=== PATIENT | female | born 1955 | race Caucasian/White ===

== ENCOUNTER → 2018-01-20 | Outpatient (CLI) | payer OTHER ==
[~2018-01-20] MED LIST: ACETAMINOOPHEN-1 TAB PO; ACID CONTROL75 MG PO; ALPRAZOLAM1 MG PO; AMOX1TAB12 PO; CIPRO750 MG PO; CLARITIN10 MG; CLONAZEPAM1 MG PO; Cozaar PO; DOCUSATE SODIU100 MG PO; DULERA 100 MCG/13 GM; FLURAZEPAM HCL15 MG; HYDROCHLOROTHIA25 MG; HYDRODIURIL PO; HYZAAR 50-12.1 UDTAB; LEVAQUIN750 MG PO; MEDROLPACK PO; METHYLPRED4 MG/DOSE- PO; NEURONTIN PO; NEURONTIN800 MG; NORTUSS-EX LIQ118 ML PO; SYNTHROID125 MCG; Synthroid 125MCG TABLET PO; TESSALON PERLE100 M1 PO; THEO-DUR PO; TOPROL XL50 M1; TOPROL XL50 M1 PO; XARELTO20 MG PO; ZITHROMAX TRI-500 MG PO
== END | disposition home or self-care (01) ==
LOC: NUCLEAR 12:57
DX: I87.2 Venous insufficiency (chronic) (peripheral) (principal)

== ENCOUNTER → 2019-02-11 | Emergency (ER) | payer OTHER ==
[~2019-02-11] VITALS: Ht 165.1 cm; Wt 72.6 kg
== END | disposition home or self-care (01) ==
LOC: ER 09:36
DX: L03.116 Cellulitis of left lower limb (principal)

== ENCOUNTER 2019-03-11 06:55 | Emergency (ER) | payer OTHER ==
[~2019-03-11] VITALS: Ht 167.6 cm; Wt 72.6 kg
[2019-03-11] MEDS ORDERED: SYNTHROID112 MCG (07:11)
[2019-03-11] MEDS ORDERED: COZAAR25 MG (07:11)
[2019-03-11] MEDS ORDERED: SPIRIVA RESPIMAT4 GM (07:12)
[2019-03-11] MEDS ORDERED: BREO ELLIPTA 21 EACH (07:12)
[2019-03-11] MEDS ORDERED: PROTONIX40 M1 (07:13)
[2019-03-11] MEDS ORDERED: CARDIZEM30 MG (07:13)
[2019-03-11] MEDS ORDERED: BUSPIRONE HCL5 MG (07:13)
== END 2019-03-11 11:23 | disposition home or self-care (01) ==
LOC: ER 06:55
DX: J44.9 Chronic obstructive pulmonary disease, unspecified (principal); J40 Bronchitis, not specified as acute or chronic

== ENCOUNTER 2019-03-18 07:20 | Inpatient (IN) | payer OTHER ==
[~2019-03-18] VITALS: Ht 167.6 cm; Wt 72.6 kg
[~2019-03-18 07:20] MED LIST changes: +BREO ELLIPTA 21 EACH; +BUSPIRONE HCL5 MG; +CARDIZEM30 MG; +COZAAR25 MG; +PROTONIX40 M1; +SPIRIVA RESPIMAT4 GM; +SYNTHROID112 MCG
== END 2019-03-23 14:15 | disposition home or self-care (01) | DRG 192 ==
LOC: ER 07:20 → MEDJ 03-19 12:37 → SEC-K 03-19 12:37 → MEDJ 03-19 13:26
PROVIDERS: ADMIT Specialist
PROC: BW24ZZZ Computerized Tomography (CT Scan) of Chest and Abdomen (ICD-10-PCS; principal; 2019-03-18)
PROC: 4A033R1 Measurement of Arterial Saturation, Peripheral, Percutaneous Approach (ICD-10-PCS; 2019-03-18)
PROC: 3E0F7GC Introduction of Other Therapeutic Substance into Respiratory Tract, Via Natural or Artificial Opening (ICD-10-PCS; 2019-03-18)
DX: J44.1 Chronic obstructive pulmonary disease with (acute) exacerbation (principal); J20.8 Acute bronchitis due to other specified organisms; I10 Essential (primary) hypertension; E03.8 Other specified hypothyroidism; M79.7 Fibromyalgia; J45.998 Other asthma; G47.33 Obstructive sleep apnea (adult) (pediatric); Z86.711 Personal history of pulmonary embolism; Z79.01 Long term (current) use of anticoagulants

== ENCOUNTER → 2019-09-13 | Emergency (ER) | payer OTHER ==
[~2019-09-13] VITALS: Ht 165.1 cm; Wt 72.6 kg
[~2019-09-13] MED LIST changes: +FLONASE16 GM NS; +PROAIR HFA8.5 GM IH; +RESTORIL30 M1 PO; +XARELTO10 MG PO; +[UNRECOGNIZED DRUG - OTHER]
== END | disposition home or self-care (01) ==
LOC: ER 09:07
DX: J44.9 Chronic obstructive pulmonary disease, unspecified (principal)

== ENCOUNTER 2019-09-15 09:48 | Emergency (ER) | payer OTHER ==
[~2019-09-15] VITALS: Ht 165.1 cm; Wt 72.6 kg
== END 2019-09-15 15:42 | disposition home or self-care (01) ==
LOC: ER 09:48
DX: J44.1 Chronic obstructive pulmonary disease with (acute) exacerbation (principal)

== ENCOUNTER 2021-03-21 16:57 | Emergency (ER) | payer OTHER ==
[~2021-03-21] VITALS: Ht 167.6 cm; Wt 80.3 kg
[2021-03-21] MEDS ORDERED: BUSPIRONE HCL5 MG PO (17:15)
[2021-03-21] MEDS ORDERED: ESTAZOLAM2 MG PO (17:15)
== END 2021-03-21 21:57 | disposition home or self-care (01) ==
LOC: ER 16:57
DX: G44.209 Tension-type headache, unspecified, not intractable (principal)

== ENCOUNTER 2021-07-21 07:12 | Outpatient (CLI) | payer OTHER ==
[~2021-07-21 07:12] MED LIST changes: +BUSPIRONE HCL5 MG PO; +ESTAZOLAM2 MG PO
== END 2021-07-21 07:13 | disposition home or self-care (01) ==
LOC: NUCLEAR 07:12
PROVIDERS: ATTEND Internal Medicine Cardiovascular Disease
DX: R07.89 Other chest pain (principal); I25.9 Chronic ischemic heart disease, unspecified; I50.1 Left ventricular failure, unspecified
CPT/HCPCS: 78452; 93017; A9500

== ENCOUNTER 2022-02-07 17:48 | Emergency (ER) | payer OTHER ==
[~2022-02-07] VITALS: Ht 165.1 cm; Wt 86.2 kg
== END 2022-02-07 22:41 | disposition home or self-care (01) ==
LOC: ER 17:48
DX: J44.1 Chronic obstructive pulmonary disease with (acute) exacerbation (principal); J45.998 Other asthma; R06.02 Shortness of breath; R53.83 Other fatigue; I10 Essential (primary) hypertension; E05.90 Thyrotoxicosis, unspecified without thyrotoxic crisis or storm; Z88.1 Allergy status to other antibiotic agents; Z20.822 Contact with and (suspected) exposure to COVID-19

== ENCOUNTER 2022-04-20 20:27 | Emergency (ER) | payer OTHER ==
[~2022-04-20] VITALS: Ht 167.6 cm; Wt 86.2 kg
== END 2022-04-21 02:47 ==
LOC: ER 20:27
DX: J44.1 Chronic obstructive pulmonary disease with (acute) exacerbation (principal); J45.901 Unspecified asthma with (acute) exacerbation; I49.9 Cardiac arrhythmia, unspecified; I10 Essential (primary) hypertension; Z20.822 Contact with and (suspected) exposure to COVID-19; Z88.1 Allergy status to other antibiotic agents

== ENCOUNTER 2022-04-27 08:18 | Outpatient (CLI) | payer OTHER | END 2022-04-27 08:19 | disposition home or self-care (01) | LOC: NUCLEAR 08:18 | PROVIDERS: ATTEND Specialist | DX: I73.9 Peripheral vascular disease, unspecified (principal); Z88.1 Allergy status to other antibiotic agents ==

== ENCOUNTER 2022-04-28 07:20 | Outpatient (CLI) | payer OTHER | END 2022-04-28 07:25 | disposition home or self-care (01) | LOC: NUCLEAR 07:20 | PROVIDERS: ATTEND Specialist | DX: I87.2 Venous insufficiency (chronic) (peripheral) (principal); Z88.1 Allergy status to other antibiotic agents ==

== ENCOUNTER 2022-05-10 14:29 | Emergency (ER) | payer OTHER ==
[~2022-05-10] VITALS: Ht 165.1 cm; Wt 86.2 kg
[2022-05-10] MEDS ORDERED: FLUTICASONE-SA1 EAC5 (14:59)
[2022-05-10] MEDS ORDERED: HYDROCHLOROTHIA25 MG PO (15:01)
== END 2022-05-10 19:40 | disposition home or self-care (01) ==
LOC: ER 14:29
DX: J44.1 Chronic obstructive pulmonary disease with (acute) exacerbation (principal); J45.901 Unspecified asthma with (acute) exacerbation; Z88.1 Allergy status to other antibiotic agents

== ENCOUNTER 2022-09-02 20:20 | Emergency (ER) | payer OTHER ==
[~2022-09-02] VITALS: Ht 165.1 cm; Wt 87.5 kg
[~2022-09-02 20:20] MED LIST changes: +FLUTICASONE-SA1 EAC5; +HYDROCHLOROTHIA25 MG PO
== END 2022-09-02 22:40 | disposition home or self-care (01) ==
LOC: ER 20:20
DX: J44.1 Chronic obstructive pulmonary disease with (acute) exacerbation (principal); Z87.09 Personal history of other diseases of the respiratory system; Z88.8 Allergy status to other drugs, medicaments and biological substances

== ENCOUNTER 2023-04-27 12:14 | Outpatient (CLI) | payer OTHER | END 2023-04-27 12:17 | disposition home or self-care (01) | LOC: NUCLEAR 12:14 | PROVIDERS: ATTEND Internal Medicine | DX: I27.24 Chronic thromboembolic pulmonary hypertension (principal); I26.99 Other pulmonary embolism without acute cor pulmonale | CPT/HCPCS: 78582; A9567 ==

== ENCOUNTER 2023-05-10 10:57 | Outpatient (CLI) | payer OTHER | END 2023-05-10 10:58 | disposition home or self-care (01) | LOC: NUCLEAR 10:57 | PROVIDERS: ATTEND Internal Medicine | DX: I27.24 Chronic thromboembolic pulmonary hypertension (principal); I26.99 Other pulmonary embolism without acute cor pulmonale | CPT/HCPCS: 78582; A9540 ==

== ENCOUNTER 2023-10-23 10:18 | Emergency (ER) | payer OTHER ==
[~2023-10-23] VITALS: Ht 167.6 cm; Wt 86.2 kg
[2023-10-23 12:05] LABS: HEMOGLOBIN 12.6 g/dL (12.0-15.00); MEAN CELL VOLUME 85.8 fL (80.00-100.00); MEAN CORPUSCULAR HEMOGLOBIN 29.2 pg (27.00-32.0); PLATELET COUNT 321 K/uL (150-450); RED BLOOD COUNT 4.31 M/uL (4.00-6.00); RED CELL DISTRIBUTION WIDTH 14.5 % (11.5-14.5)
[2023-10-23 12:59] LABS: BILIRUBIN TOTAL 0.93 mg/dL (0.3-1.2); BILIRUBIN,CONJUGATED 0.23 mg/dL (0.0-0.2); BILIRUBIN,UNCONJUGATED 0.7 mg/dL (0.0-0.6); CALCIUM 9.1 mg/dL (8.5-10.1); CREATININE SERUM 0.7 mg/dL (0.55-1.02); GFR 82.97; POTASSIUM 3.7 mEq/L (3.5-5.1)
[2023-10-23 13:52] LABS: URINE APPEARANCE Cloudy; URINE BILIRRUBIN Negative (NEGATIVE); URINE BLOOD Negative; URINE COLOR Yellow; URINE GLUCOSE Negative (NEGATIVE); URINE LEUKOCYTE Negative; URINE NITRATE Negative; URINE PROTEIN Negative (NEGATIVE); URINE UROBILINOGEN 0.2 E.U./dl
[2023-10-23 14:03] LABS: URINE BACTERIA 32.7 uL (0.0-1933); URINE EPITHELIAL CELLS 3.3 uL (0.0-38.8); URINE RBC 35.9 uL (0.0-20.8)
[2023-10-23 14:07] LABS: URINE WBC 1.5 uL (0.0-23.2)
== END 2023-10-23 16:18 | disposition home or self-care (01) ==
LOC: ER 10:19
PROVIDERS: General Practice
DX: K52.89 Other specified noninfective gastroenteritis and colitis (principal); I10 Essential (primary) hypertension; Z88.8 Allergy status to other drugs, medicaments and biological substances; Z87.09 Personal history of other diseases of the respiratory system; Z20.822 Contact with and (suspected) exposure to COVID-19
CPT/HCPCS: 36415; 74176; 93005; 96365; 96372; 99284; J2405; J3490; J7120

== ENCOUNTER 2023-10-27 18:54 | Inpatient (IN) | payer OTHER ==
[~2023-10-27] VITALS: Ht 167.6 cm; Wt 83.9 kg
[2023-10-27] MEDS ORDERED: FAMOTIDINE/PF 20 MG in 0.9 % SODIUM CHLORIDE 8 ML IV PUSH STA (19:27)
[2023-10-27] MEDS ORDERED: 0.9 % SODIUM CHLORIDE 1,000 ML IV SCH ×2 (19:30→22:00)
[2023-10-27] MEDS ORDERED: ONDANSETRON HCL 2 MG/ML VIAL IV ONE (19:30)
[2023-10-27] MEDS ORDERED: DIPHENOXYLATE HCL/ATROPINE 1 UDTAB TABLET PO ONE (19:30)
[2023-10-27 20:16] LABS: HEMATOCRIT 34.8 % (36.0-45.00); MEAN CELL VOLUME 86.4 fL (80.00-100.00); MEAN CORPUSCULAR HEMOGLOBIN 29.7 pg (27.00-32.0); MEAN CORPUSCULAR HGB CONC 34.3 g/dl (32.0-36.0); PLATELET COUNT 356 K/uL (150-450); RED BLOOD COUNT 4.03 M/uL (4.00-6.00); RED CELL DISTRIBUTION WIDTH 14.5 % (11.5-14.5)
[2023-10-27 20:59] LABS: ALBUMIN 3.7 gm/dL (3.4-5.0); BILIRUBIN TOTAL 0.67 mg/dL (0.3-1.2); BILIRUBIN,CONJUGATED 0.17 mg/dL (0.0-0.2); BILIRUBIN,UNCONJUGATED 0.5 mg/dL (0.0-0.6); CALCIUM 8.8 mg/dL (8.5-10.1); CREATININE SERUM 0.61 mg/dL (0.55-1.02); GFR 97.25; GLOBULINA 3.2 G/DL (2.4-3.5); TOTAL PROTEIN 6.9 gm/dL (6.4-8.2)
[2023-10-27 21:05] LABS: POTASSIUM 2.78 mEq/L (3.5-5.1)
[2023-10-27] MEDS ORDERED: CEFTRIAXONE SODIUM 2,000 MG in 0.9 % SODIUM CHLORIDE 100 ML IV SCH (21:58)
[2023-10-27] MEDS ORDERED: METRONIDAZOLE/SODIUM CHLORIDE 100 ML IV SCH (21:58)
[2023-10-27] MEDS ORDERED: ONDANSETRON HCL 4 MG in 0.9 % SODIUM CHLORIDE 50 ML IV PRN (22:00)
[2023-10-27] MEDS ORDERED: ACETAMINOPHEN 500 MG GEL..CAP PO PRN (22:00)
[2023-10-27 22:12] LABS: URINE APPEARANCE Clear; URINE BILIRRUBIN Negative (NEGATIVE); URINE BLOOD Negative; URINE COLOR Yellow; URINE GLUCOSE Negative (NEGATIVE); URINE LEUKOCYTE Negative; URINE NITRATE Negative; URINE PROTEIN Negative (NEGATIVE)
[2023-10-27 22:15] LABS: URINE BACTERIA 45.3 uL (0.0-1933); URINE EPITHELIAL CELLS 2.1 uL (0.0-38.8); URINE RBC 129.9 uL (0.0-20.8)
[2023-10-27 22:16] LABS: URINE WBC 1.6 uL (0.0-23.2)
[2023-10-27] MEDS ORDERED: POTASSIUM CHLORIDE 20MEQ/100ML H2O PB IV ONE (23:45)
[2023-10-27] MEDS ORDERED: PROMETHAZINE HCL 25 MG/ML AMPUL IM ONE (23:45)
[2023-10-27] MEDS ORDERED: MEPERIDINE HCL/PF 25 MG/ML VIAL IM ONE (23:45)
[2023-10-28 00:45] LABS: INR 1.25; PARTIAL THROMBOPLASTIN TIME 34.5 SECONDS (22.0-34.0); PROTHROMBIN TIME 12.9 SECONDS (9.0-11.5)
[2023-10-28] MEDS ORDERED: FAMOTIDINE/PF 20 MG in 0.9 % SODIUM CHLORIDE 8 ML IV PUSH SCH (05:00)
[2023-10-28] MEDS ORDERED: LEVOTHYROXINE SODIUM 112 MCG TABLET PO SCH (06:00)
[2023-10-28] MEDS ORDERED: LOSARTAN POTASSIUM 25 MG TABLET PO SCH (09:00)
[2023-10-28] MEDS ORDERED: LOSARTAN/HYDROCHLOROTHIAZIDE 1 TAB TABLET PO SCH (09:00)
[2023-10-28] MEDS ORDERED: DILTIAZEM HCL 120 MG CAP.SR.24H PO SCH (09:00)
[2023-10-28] MEDS ORDERED: ENOXAPARIN SODIUM 40 MG/0.4 ML SYRINGE SUBCUTANEO SCH (09:00)
[2023-10-28] MEDS ORDERED: LACTOBACILLUS ACIDOPHILUS 1 CAP CAP PO SCH ×2 (17:00)
[2023-10-28] MEDS ORDERED: GABAPENTIN 800 MG TABLET PO SCH (17:00)
[2023-10-29] MEDS ORDERED: RIVAROXABAN 20 MG TABLET PO SCH (09:00)
[2023-10-29 09:20] LABS: HEMATOCRIT 31.2 % (36.0-45.00); HEMOGLOBIN 11.1 g/dL (12.0-15.00); MEAN CELL VOLUME 85.1 fL (80.00-100.00); MEAN CORPUSCULAR HEMOGLOBIN 30.1 pg (27.00-32.0); MEAN CORPUSCULAR HGB CONC 35.4 g/dl (32.0-36.0); PLATELET COUNT 296 K/uL (150-450); RED BLOOD COUNT 3.67 M/uL (4.00-6.00); RED CELL DISTRIBUTION WIDTH 14.6 % (11.5-14.5)
[2023-10-29 09:32] LABS: ALBUMIN 3.1 gm/dL (3.4-5.0); BILIRUBIN TOTAL 0.66 mg/dL (0.3-1.2); CALCIUM 8.5 mg/dL (8.5-10.1); CREATININE SERUM 0.6 mg/dL (0.55-1.02); GFR 99.12; GLOBULINA 2.7 G/DL (2.4-3.5); MAGNESIUM 2.1 mg/dL (1.8-2.4); PHOSPHOROUS 3.5 mg/dL (2.5-4.9); POTASSIUM 3.49 mEq/L (3.5-5.1); TOTAL PROTEIN 5.8 gm/dL (6.4-8.2); TSH 1.64 uIU/mL (0.358-3.74)
[2023-10-29 09:34] LABS: T4 FREE 1.49 NG/ML (0.76-1.46)
[2023-10-29] MEDS ORDERED: TRAMADOL HCL 50 MG TABLET PO PRN (13:15)
[2023-10-29] MEDS ORDERED: POTASSIUM CHLORIDE 20MEQ/100ML H2O PB IV ONE (13:30)
[2023-10-30] MEDS ORDERED: ZOLPIDEM TARTRATE 10 MG TABLET PO SCH (21:00)
[2023-10-31 07:08] LABS: BILIRUBIN TOTAL 0.5 mg/dL (0.3-1.2); CALCIUM 8.3 mg/dL (8.5-10.1); CREATININE SERUM 0.57 mg/dL (0.55-1.02); GFR 105.17; GLOBULINA 2.4 G/DL (2.4-3.5); MAGNESIUM 2.2 mg/dL (1.8-2.4); POTASSIUM 4.03 mEq/L (3.5-5.1); TOTAL PROTEIN 5.4 gm/dL (6.4-8.2)
[2023-11-01] MEDS ORDERED: FAMOTIDINE/PF 20 MG/2 ML VIAL ONE (23:59)
== END 2023-10-31 15:27 | disposition home or self-care (01) | DRG 640 ==
LOC: ER 18:54 → MEDI 22:01
PROVIDERS: General Practice; Internal Medicine Nephrology; ADMIT Internal Medicine; ATTEND Internal Medicine
DX: E86.0 Dehydration (principal); I26.99 Other pulmonary embolism without acute cor pulmonale; E87.1 Hypo-osmolality and hyponatremia; J44.9 Chronic obstructive pulmonary disease, unspecified; E03.9 Hypothyroidism, unspecified

== ENCOUNTER 2024-04-04 16:49 | Emergency (ER) | payer OTHER ==
[~2024-04-04] VITALS: Ht 167.6 cm; Wt 85.3 kg
[2024-04-04] MEDS ORDERED: ADEMPAS2.5 MG (17:06)
[2024-04-04 19:18] LABS: HEMATOCRIT 32.9 % (36.0-45.00); HEMOGLOBIN 11.2 g/dL (12.0-15.00); MEAN CELL VOLUME 86.3 fL (80.00-100.00); MEAN CORPUSCULAR HEMOGLOBIN 29.4 pg (27.00-32.0); MEAN CORPUSCULAR HGB CONC 34.1 g/dl (32.0-36.0); PLATELET COUNT 264 K/uL (150-450); RED BLOOD COUNT 3.81 M/uL (4.00-6.00); RED CELL DISTRIBUTION WIDTH 15.5 % (11.5-14.5)
[2024-04-04 19:29] LABS: INR 1.07; PARTIAL THROMBOPLASTIN TIME 29.1 SECONDS (22.0-34.0); PROTHROMBIN TIME 11.2 SECONDS (9.0-11.5)
[2024-04-04 19:34] LABS: BILIRUBIN TOTAL 0.68 mg/dL (0.3-1.2); CALCIUM 9.9 mg/dL (8.5-10.1); CREATININE SERUM 0.94 mg/dL (0.55-1.02); GFR 58.87; GLOBULINA 3.4 G/DL (2.4-3.5); POTASSIUM 3.44 mEq/L (3.5-5.1); TOTAL PROTEIN 7.4 gm/dL (6.4-8.2)
== END 2024-04-04 20:33 | disposition home or self-care (01) ==
LOC: ER 16:49
DX: R60.0 Localized edema (principal); Z88.8 Allergy status to other drugs, medicaments and biological substances

== ENCOUNTER 2024-04-28 09:39 | Emergency (ER) | payer OTHER ==
[~2024-04-28] VITALS: Ht 170.2 cm; Wt 84.8 kg
[~2024-04-28 09:39] MED LIST changes: +ADEMPAS2.5 MG
[2024-04-28] MEDS ORDERED: IBUprofen 400 MG TABLET PO ONE (11:00)
[2024-04-28] MEDS ORDERED: IBUprofen 20 MG/ML BLIST.PACK (5ML) PO ONE (11:19)
== END 2024-04-28 14:26 | disposition home or self-care (01) ==
LOC: ER 09:41
DX: S00.93XA Contusion of unspecified part of head, initial encounter (principal); S90.31XA Contusion of right foot, initial encounter; S40.011A Contusion of right shoulder, initial encounter; W06.XXXA Fall from bed, initial encounter; Y93.84 Activity, sleeping; Y92.013 Bedroom of single-family (private) house as the place of occurrence of the external cause; Y99.9 Unspecified external cause status; I10 Essential (primary) hypertension; E03.9 Hypothyroidism, unspecified

== ENCOUNTER → 2024-05-17 09:55 | Outpatient (CLI) | payer OTHER | END | disposition home or self-care (01) | LOC: NUCLEAR 09:55 | PROVIDERS: ATTEND Internal Medicine | DX: I77.2 Rupture of artery (principal); I87.2 Venous insufficiency (chronic) (peripheral) ==

== ENCOUNTER 2024-08-21 14:31 | Emergency (ER) | payer OTHER ==
[~2024-08-21] VITALS: Ht 167.6 cm; Wt 83.9 kg
[2024-08-21] MEDS ORDERED: 0.9 % SODIUM CHLORIDE 1,000 ML IV SCH (16:30)
[2024-08-21 16:57] LABS: HEMATOCRIT 34.1 % (36.0-45.00); HEMOGLOBIN 11.5 g/dL (12.0-15.00); MEAN CELL VOLUME 87.3 fL (80.00-100.00); MEAN CORPUSCULAR HEMOGLOBIN 29.5 pg (27.00-32.0); MEAN CORPUSCULAR HGB CONC 33.8 g/dl (32.0-36.0); PLATELET COUNT 280 K/uL (150-450); RED CELL DISTRIBUTION WIDTH 15.4 % (11.5-14.5)
[2024-08-21 17:13] LABS: PARTIAL THROMBOPLASTIN TIME 25.5 SECONDS (22.0-34.0); PROTHROMBIN TIME 10.9 SECONDS (9.0-11.5)
[2024-08-21 17:18] LABS: CALCIUM 9.3 mg/dL (8.5-10.1); CREATININE SERUM 1.05 mg/dL (0.55-1.02); GFR 51.81; POTASSIUM 4.41 mEq/L (3.5-5.1)
[2024-08-21 17:46] LABS: PH,URINE 5.5 (5.0-8.0); URINE APPEARANCE Clear; URINE BILIRRUBIN Negative (NEGATIVE); URINE BLOOD Negative; URINE COLOR Yellow; URINE GLUCOSE Negative (NEGATIVE); URINE KETONE Negative (NEGATIVE); URINE LEUKOCYTE Negative; URINE NITRATE Negative; URINE PROTEIN Negative (NEGATIVE); URINE UROBILINOGEN 0.2 E.U./dl
[2024-08-21 17:51] LABS: URINE BACTERIA 2.5 uL (0.0-1933); URINE CAST 0.15 uL (0.0-1.40); URINE EPITHELIAL CELLS 0.9 uL (0.0-38.8); URINE RBC 1.5 uL (0.0-20.8); URINE WBC 0.1 uL (0.0-23.2)
[2024-08-21 19:51] LABS: ABG PH 7.424 (7.35-7.45); ABG PO2 106.3 mmHg (80-100); ABG pCO2 40.8 mmHg (35-45); BASE EXCESS 1.6 mmol/l; BICARBONATE 26.1 mmol/l (23-25); SaO2 98.2 %; Tco2 27.4 mmol/l
[2024-08-21 19:52] LABS: allen test SATISFACTORY; o2 21 %; puncture site RADIAL LEFT
== END 2024-08-21 19:36 | disposition home or self-care (01) ==
LOC: ER 14:33
PROVIDERS: Emergency Medicine
DX: R53.81 Other malaise (principal); R06.02 Shortness of breath; I10 Essential (primary) hypertension
CPT/HCPCS: 36415; 71250; 82803; 96365; 96366; 99284; J7030

== ENCOUNTER 2024-09-05 10:51 | Emergency (ER) | payer OTHER ==
[~2024-09-05] VITALS: Ht 167.6 cm; Wt 85.3 kg
[2024-09-05 12:04] VITALS: BP 110/72; O2SAT 94
[2024-09-05] MEDS ORDERED: METHYLPREDNISOLONE SOD SUCC 125 MG VIAL IV STA (12:32)
[2024-09-05] MEDS ORDERED: IPRATROPIUM BROMIDE 0.5 MG/2.5 ML AMPUL.NEB IH STA (12:32)
[2024-09-05] MEDS ORDERED: BUDESONIDE 0.5 MG/2 ML AMPUL.NEB IH STA (12:32)
[2024-09-05] MEDS ORDERED: LEVALBUTEROL HCL 1.25 MG/3 ML SOLUTION IH STA (12:32)
[2024-09-05] MEDS ORDERED: GUAIFENESIN/DEXTROMETHORPHAN 5ML BLIST.PACK PO STA (12:37)
[2024-09-05] MEDS ORDERED: MAGNESIUM SULFATE IN WATER 50 ML IV ONE (12:45)
== END 2024-09-05 15:20 | disposition home or self-care (01) ==
LOC: ER 10:53
DX: R06.02 Shortness of breath (principal); J44.1 Chronic obstructive pulmonary disease with (acute) exacerbation; J45.909 Unspecified asthma, uncomplicated; I10 Essential (primary) hypertension; E03.8 Other specified hypothyroidism

== ENCOUNTER 2024-09-14 08:30 | Outpatient (CLI) | payer OTHER | END 2024-09-14 08:31 | disposition home or self-care (01) | LOC: NUCLEAR 08:30 | PROVIDERS: ATTEND Internal Medicine Pulmonary Disease | DX: I26.99 Other pulmonary embolism without acute cor pulmonale (principal) | CPT/HCPCS: 78582; A9540; A9567 ==

== ENCOUNTER 2024-09-17 07:59 | Outpatient (CLI) | payer OTHER | END 2024-09-17 08:00 | disposition home or self-care (01) | LOC: NUCLEAR 07:59 | PROVIDERS: ATTEND Internal Medicine Pulmonary Disease | DX: I26.99 Other pulmonary embolism without acute cor pulmonale (principal) | CPT/HCPCS: 78582; A9540; A9567 ==

== ENCOUNTER 2025-01-12 14:21 | Emergency (ER) | payer OTHER ==
[~2025-01-12] VITALS: Ht 167.6 cm; Wt 81.6 kg
[2025-01-12] MEDS ORDERED: COZAAR50 MG PO (15:37)
[2025-01-12] MEDS ORDERED: TRAMADOL HCL 50 MG TABLET PO ONE (16:15)
[2025-01-12 16:54] LABS: HEMATOCRIT 40.8 % (36.0-45.00); HEMOGLOBIN 13.6 g/dL (12.0-15.00); MEAN CELL VOLUME 88.3 fL (80.00-100.00); MEAN CORPUSCULAR HEMOGLOBIN 29.5 pg (27.00-32.0); MEAN CORPUSCULAR HGB CONC 33.4 g/dl (32.0-36.0); PLATELET COUNT 295 K/uL (150-450); RED BLOOD COUNT 4.61 M/uL (4.00-6.00); RED CELL DISTRIBUTION WIDTH 14.7 % (11.5-14.5)
[2025-01-12 17:17] LABS: BILIRUBIN TOTAL 0.77 mg/dL (0.3-1.2); CALCIUM 9.7 mg/dL (8.5-10.1); CREATININE SERUM 0.85 mg/dL (0.55-1.02); GFR 65.93; GLOBULINA 3.8 G/DL (2.4-3.5); TOTAL PROTEIN 7.8 gm/dL (6.4-8.2)
[2025-01-12 17:24] LABS: INR 1.06; PARTIAL THROMBOPLASTIN TIME 28.7 SECONDS (22.0-34.0); PROTHROMBIN TIME 11.5 SECONDS (9.0-11.5)
[2025-01-12] MEDS ORDERED: BUTALB/ACETAMINOPHEN/CAFFEINE 1 TAB TABLET PO ONE ×2 (18:00→18:06)
[2025-01-12] MEDS ORDERED: DIPHENHYDRAMINE HCL 50 MG/ML VIAL 1ML IV ONE (18:00)
[2025-01-12] MEDS ORDERED: 0.9 % SODIUM CHLORIDE 1,000 ML IV ONE (18:00)
[2025-01-12 18:05] LABS: POTASSIUM 2.62 mEq/L (3.5-5.1)
[2025-01-12] MEDS ORDERED: DIPHENHYDRAMINE HCL 50 MG/ML VIAL 1ML ONE (18:05)
[2025-01-12] MEDS ORDERED: POTASSIUM BICARBONATE/CIT AC 25 MEQ TABLET.EFF PO ONE (18:15)
[2025-01-12 18:28] LABS: COVID-19 AG NEGATIVE (NEGATIVE)
[2025-01-12 18:30] LABS: INFLUENZA A AG NEGATIVE (NEGATIVE)
== END 2025-01-12 19:40 | disposition home or self-care (01) ==
LOC: ER 14:21
PROVIDERS: General Practice
DX: R51.9 Headache, unspecified (principal); H53.8 Other visual disturbances; R20.0 Anesthesia of skin; J44.9 Chronic obstructive pulmonary disease, unspecified; I10 Essential (primary) hypertension; Z86.711 Personal history of pulmonary embolism; Z20.822 Contact with and (suspected) exposure to COVID-19
CPT/HCPCS: 70450; 71045; 93005; 96365; 99283; J1200; J7030

== ENCOUNTER 2025-02-28 09:15 | Inpatient (IN) | payer OTHER ==
[~2025-02-28] VITALS: Ht 167.6 cm; Wt 81.6 kg
[~2025-02-28 09:15] MED LIST changes: -CARDIZEM30 MG; +CARDIZEM30 MG PO; +COZAAR50 MG PO
[2025-02-28 11:21] LABS: PH,URINE 6.5 (5.0-8.0); URINE APPEARANCE Clear; URINE BILIRRUBIN Small (NEGATIVE); URINE BLOOD Negative; URINE COLOR Dark Yellow; URINE GLUCOSE Negative (NEGATIVE); URINE KETONE 15 (NEGATIVE); URINE LEUKOCYTE Small; URINE NITRATE Negative; URINE PROTEIN 30 (NEGATIVE)
[2025-02-28 11:22] LABS: BASO % 0.8 % (0.1-1.2); EOS # 0.07 (0.04-0.54); EOS % 1.1 % (0.7-7.0); HEMATOCRIT 36.2 % (34.1-44.9); HEMOGLOBIN 11.9 g/dL (11.2-15.7); LYMPH # 1.39 (1.18-3.74); LYMPH % 21.2 % (19.3-53.1); MONO # 0.48 (0.24-0.82); MONO % 7.3 % (4.7-12.5); NEUT # 4.53 (1.56-6.13); NEUT % 69.1 % (34.0-71.1); PLATELET COUNT 256 K/uL (163-369); RED CELL DISTRIBUTION WIDTH 14.9 % (11.6-14.4)
[2025-02-28 11:26] LABS: URINE BACTERIA 206.8 uL (0.0-1933); URINE EPITHELIAL CELLS 27.8 uL (0.0-38.8); URINE RBC 56.5 uL (0.0-20.8); URINE WBC 6.4 uL (0.0-23.2)
[2025-02-28 11:46] LABS: URINE CAST 1.03 uL (0.0-1.40)
[2025-02-28 11:47] LABS: URINE CRYSTALS FEW /HPF; URINE MUCUS MODERATE
[2025-02-28 11:48] LABS: INR 1.16; PARTIAL THROMBOPLASTIN TIME 27.2 SECONDS (22.0-34.0); PROTHROMBIN TIME 12.5 SECONDS (9.0-11.5)
[2025-02-28 12:39] VITALS: BP 105/65
[2025-02-28 13:05] LABS: CALCIUM 9.2 mg/dL (8.5-10.1); CREATININE SERUM 0.78 mg/dL (0.55-1.02); GFR 72.8; POTASSIUM 3.88 mEq/L (3.5-5.1)
[2025-02-28] MEDS ORDERED: ATORVASTATIN CA10 MG PO (14:17)
[2025-02-28] MEDS ORDERED: XARELTO20 MG PO (14:18)
[2025-02-28] MEDS ORDERED: CLONAZEPAM2 M1 PO (14:18)
[2025-03-01 18:28] LABS: RH NEGATIVE
[2025-03-04] MEDS ORDERED: VANCOMYCIN HCL 1,000 MG VIAL IV SCH ×2 (06:00→21:00)
[2025-03-04] MEDS ORDERED: VANCOMYCIN HCL 1,000 MG VIAL ONE (08:59)
[2025-03-04] MEDS ORDERED: TRANEXAMIC ACID 100MG/1ML (1000MG) AMPUL IV ONE (08:59)
[2025-03-04] MEDS ORDERED: METHYLPREDNISOLONE ACETATE 80 MG/ML VIAL ONE (12:13)
[2025-03-04] MEDS ORDERED: KETOROLAC TROMETHAMINE 60 MG VIAL IM ONE (12:13)
[2025-03-04] MEDS ORDERED: ENALAPRILAT DIHYDRATE 1.25 MG/ML VIAL IV ONE (12:49)
[2025-03-04] MEDS ORDERED: hydrALAZINE HCL 20 MG VIAL ONE (13:41)
[2025-03-04] MEDS ORDERED: SUGAMMADEX SODIUM 200 MG/2 ML VIAL IV ONE (14:10)
[2025-03-04] MEDS ORDERED: SODIUM CHLORIDE 0.45 % 1,000 ML IV SCH (14:45)
[2025-03-04] MEDS ORDERED: MORPHINE SULFATE 4 MG/ML CARTRIDGE IV PRN (14:45)
[2025-03-04] MEDS ORDERED: MORPHINE SULFATE 2 MG/ML CARTRIDGE IV NR (14:45)
[2025-03-04] MEDS ORDERED: ONDANSETRON HCL 2 MG/ML VIAL IV PRN (14:45)
[2025-03-04] MEDS ORDERED: MORPHINE SULFATE 4 MG/ML VIAL IV ONE ×2 (14:50→15:30)
[2025-03-04] MEDS ORDERED: ONDANSETRON HCL 2 MG/ML VIAL ONE (15:57)
[2025-03-04] MEDS ORDERED: DILTIAZEM HCL 30 MG TABLET PO SCH (17:00)
[2025-03-04 21:10] VITALS: BP 113/65
[2025-03-05 01:55] VITALS: BP 120/68
[2025-03-05] MEDS ORDERED: ACETAMINOPHEN WITH CODEINE 1 UDTAB TABLET PO PRN ×3 (02:00→18:08)
[2025-03-05 02:03] LABS: BASO % 0.2 % (0.1-1.2); HEMATOCRIT 30.6 % (34.1-44.9); LYMPH # 0.46 (1.18-3.74); LYMPH % 4.5 % (19.3-53.1); MEAN CORPUSCULAR HEMOGLOBIN 29.5 pg (25.6-32.2); MONO % 8.9 % (4.7-12.5); PLATELET COUNT 230 K/uL (163-369); RED BLOOD COUNT 3.53 M/uL (3.93-5.22); RED CELL DISTRIBUTION WIDTH 14.8 % (11.6-14.4)
[2025-03-05 02:06] LABS: HEMOGLOBIN 10.4 g/dL (11.2-15.7)
[2025-03-05 08:00] VITALS: BP 125/76; O2SAT 98
[2025-03-05] MEDS ORDERED: RIVAROXABAN 10 MG TAB PO SCH (09:00)
[2025-03-05] MEDS ORDERED: ATORVASTATIN CALCIUM 20 MG TABLET PO SCH (09:00)
[2025-03-05] MEDS ORDERED: PANTOPRAZOLE SODIUM 40 MG TABLET.DR PO SCH (09:00)
[2025-03-05] MEDS ORDERED: IRON FUM,PS/FOLIC/BCOMP,C NO.9 1 CAP CAPSULE PO SCH (09:00)
[2025-03-05] MEDS ORDERED: HYDROCHLOROTHIAZIDE 25 MG TABLET PO SCH (09:00)
[2025-03-05] MEDS ORDERED: BACITRACIN 28.35 GM OINT.TUBE TOP SCH (09:00)
[2025-03-05] MEDS ORDERED: SENNA/DOCUSATE SODIUM 1 TAB TABLET PO SCH (09:00)
[2025-03-05] MEDS ORDERED: FAMOTIDINE/PF 20 MG in 0.9 % SODIUM CHLORIDE 8 ML IV PUSH SCH (11:31)
[2025-03-05] MEDS ORDERED: ONDANSETRON HCL 2 MG/ML VIAL IV PRN (11:37)
[2025-03-05] MEDS ORDERED: IPRATROPIUM/ALBUTEROL SULFATE 3 ML AMPUL.NEB IH SCH (12:27)
[2025-03-05 17:37] VITALS: BP 148/74; O2SAT 95
[2025-03-05] MEDS ORDERED: SULFAMETHOXAZOLE/TRIMETHOPRIM DS 1 TAB PO SCH (21:00)
[2025-03-06 01:39] VITALS: BP 141/67; O2SAT 100
[2025-03-06] MEDS ORDERED: Septra Ds Tablet PO (06:30)
[2025-03-06] MEDS ORDERED: INTEGRA PLUS C1 EACH PO (06:31)
[2025-03-06] MEDS ORDERED: ACETAMINOPHEN-1 EAC2 PO (06:31)
[2025-03-06] MEDS ORDERED: XARELTO20 MG PO (06:32)
[2025-03-06 08:28] LABS: BASO % 0.2 % (0.1-1.2); HEMATOCRIT 27.7 % (34.1-44.9); HEMOGLOBIN 9.4 g/dL (11.2-15.7); LYMPH # 0.61 (1.18-3.74); LYMPH % 6.3 % (19.3-53.1); MEAN CORPUSCULAR HEMOGLOBIN 29.6 pg (25.6-32.2); MONO # 1.07 (0.24-0.82); NEUT # 7.95 (1.56-6.13); PLATELET COUNT 215 K/uL (163-369); RED BLOOD COUNT 3.18 M/uL (3.93-5.22); RED CELL DISTRIBUTION WIDTH 14.8 % (11.6-14.4)
[2025-03-06 08:46] VITALS: BP 143/83; O2SAT 95
[2025-03-06 14:19] LABS: COVID-19 AG NEGATIVE (NEGATIVE)
== END 2025-03-06 14:30 | DRG 470 ==
LOC: O/R 03-04 07:54 → SURH 03-04 07:54 → OB/GYN 03-04 07:54 → SURH 03-04 09:15 → O/R 03-04 17:08 → OB/GYN 03-04 17:52 → SURH 03-05 14:26
PROVIDERS: ADMIT Orthopaedic Surgery Sports Medicine; ATTEND Orthopaedic Surgery Sports Medicine
PROC: 0SRC0J9 Replacement of Right Knee Joint with Synthetic Substitute, Cemented, Open Approach (ICD-10-PCS; principal; 2025-03-04 14:00)
DX: M17.11 Unilateral primary osteoarthritis, right knee (principal); I10 Essential (primary) hypertension; E03.9 Hypothyroidism, unspecified; J44.9 Chronic obstructive pulmonary disease, unspecified; E78.5 Hyperlipidemia, unspecified; G47.33 Obstructive sleep apnea (adult) (pediatric); Z87.891 Personal history of nicotine dependence

== ENCOUNTER → 2025-08-01 13:30 | Outpatient (CLI) | payer OTHER ==
[~2025-08-01 13:30] MED LIST changes: +ACETAMINOPHEN-1 EAC2 PO; +ATORVASTATIN CA10 MG PO; +CLONAZEPAM2 M1 PO; +INTEGRA PLUS C1 EACH PO; +Septra Ds Tablet PO
[2025-08-01 14:15] LABS: BASO % 0.5 % (0.1-1.2); EOS # 0.08 (0.04-0.54); EOS % 1.0 % (0.7-7.0); LYMPH # 1.90 (1.18-3.74); LYMPH % 24.5 % (19.3-53.1); MEAN PLATELET VOLUME 8.90 fl (9.4-12.4); MONO # 0.71 (0.24-0.82); MONO % 9.2 % (4.7-12.5); NEUT # 5.00 (1.56-6.13); NEUT % 64.5 % (34.0-71.1); RED CELL DISTRIBUTION WIDTH 15.9 % (11.6-14.4)
[2025-08-01 14:37] LABS: COVID-19 AG NEGATIVE (NEGATIVE)
== END | disposition home or self-care (01) ==
LOC: LAB 13:30
PROVIDERS: ATTEND Internal Medicine
DX: J10.1 Influenza due to other identified influenza virus with other respiratory manifestations (principal); U07.1 COVID-19

== ENCOUNTER 2025-08-01 14:20 | Outpatient (CLI) | payer OTHER | END 2025-08-01 14:22 | disposition home or self-care (01) | LOC: RAD 14:20 | PROVIDERS: ATTEND Internal Medicine | DX: J10.1 Influenza due to other identified influenza virus with other respiratory manifestations (principal) ==